=== PATIENT | male | born 1980 | race African-American/Black ===

== ENCOUNTER 2017-08-12 21:45 | Emergency (ER) | payer OTHER ==
[~2017-08-12] VITALS: Ht 188 cm; Wt 100.0 kg
[2017-08-13] MEDS ORDERED: BACITRACIN ZINC OINT UDPKT TOP ONE (01:00)
[2017-08-13] MEDS ORDERED: TETANUS AND DIPHTHERIA TOX/PF 0.5ML SYR (ADULT) IM ONE (01:00)
[2017-08-13] MEDS ORDERED: LIDOCAINE HCL 1% 20ML VIAL (Pyxis) INJ INFIL NR (01:15)
[2017-08-13 02:49] VITALS: BP 121/76
== END 2017-08-13 02:52 | disposition home or self-care (01) ==
LOC: ER 22:02
DX: S01.81XA Laceration without foreign body of other part of head, initial encounter (principal); F12.10 Cannabis abuse, uncomplicated; Y35.893A Legal intervention involving other specified means, suspect injured, initial encounter; Y93.89 Activity, other specified; Y92.488 Other paved roadways as the place of occurrence of the external cause
CPT/HCPCS: 12011; 99283; J3490; Z7610; 90714

== ENCOUNTER 2017-10-18 05:33 | Inpatient (IN) | payer SELFPAY ==
[~2017-10-18] VITALS: Ht 182.9 cm; Wt 91.2 kg
[2017-10-18] MEDS ORDERED: SODIUM CHLORIDE 0.9% 1,000 ML IV ONE (06:57)
[2017-10-18] MEDS ORDERED: ONDANSETRON HCL 4MG/2ML VIAL IV STA ×2 (06:57→11:03)
[2017-10-18] MEDS ORDERED: MORPHINE SULFATE 4 MG/ML CPJ (NOT FOR IM USE) IV STA ×2 (06:57→11:03)
[2017-10-18 07:19] LABS: BASOPHILS % 0.7 % (0.0-2.0); EOSINOPHILS % 0.5 % (0.0-5.0); HEMATOCRIT. 30.9 % (42.0-52.0); LYMPHOCYTES % 10.9 % (20.0-50.0); MEAN CORPUSCULAR HEMOGLOBIN 27.5 pg (28.0-32.0); MEAN CORPUSCULAR VOLUME 84.6 fL (80.0-94.0); MEAN PLATELET VOLUME 6.7 fl (7.4-10.4); MONOCYTES % 7.5 % (2.0-8.0); NEUTROPHILS % 80.4 % (40.0-76.0); PLATELET 368 x1000/uL (130-400); RED BLOOD CELL COUNT 3.65 mill/uL (4.7-6.1); RED CELL DISTRIBUTION WIDTH 19.2 % (11.6-14.6)
[2017-10-18 07:25] LABS: INR 1.1; PROTHROMBIN TIME 10.9 sec (9.4-11.6)
[2017-10-18 07:34] LABS: CARBON DIOXIDE 30 mEq/L (21-32); CHLORIDE 103 mEq/L (98-107)
[2017-10-18] MEDS ORDERED: IOHEXOL-300 100 ML BOTTLE ONE (10:02)
[2017-10-18 11:24] LABS: CLARITY URINE CLEAR (CLEAR); COLOR URINE YELLOW (YELLOW); KETONES URINE NEGATIVE (NEGATIVE); LEUKOCYTE ESTERASE URINE NEGATIVE (NEGATIVE); NITRITE URINE NEGATIVE (NEGATIVE); OCCULT BLOOD URINE NEGATIVE (NEGATIVE); PH URINE >=9.0 (4.5-8.0); PROTEIN URINE TRACE (NEGATIVE); SPECIFIC GRAVITY URINE 1.031 (1.005-1.030); UROBILINOGEN URINE 0.2 E.U./dL (0.2-1.0)
[2017-10-18] MEDS ORDERED: DOCUSATE SODIUM 100MG CAPSULE PO PRN (11:30)
[2017-10-18] MEDS ORDERED: MORPHINE SULFATE 2 MG/ML CPJ (NOT FOR IM USE) IV PRN (11:30)
[2017-10-18] MEDS ORDERED: ACETAMINOPHEN 325MG TABLET PO PRN (11:30)
[2017-10-18] MEDS ORDERED: ONDANSETRON HCL 4MG/2ML VIAL IV PRN (11:30)
[2017-10-18] MEDS ORDERED: ACETAMINOPHEN 650MG SUPP PR PRN (11:30)
[2017-10-18] MEDS ORDERED: IPRATROPIUM/ALBUTEROL 0.5-3(2.5)MG/3ML NEB INH PRN (11:30)
[2017-10-18] MEDS ORDERED: CLONIDINE 0.1MG TABLET PO PRN (11:30)
[2017-10-18] MEDS ORDERED: HYDROCODONE/ACETAMINOPHEN 10/325MG TABLET PO PRN (11:30)
[2017-10-18] MEDS ORDERED: MAGNESIUM/ALUMINUM HYDROXIDE/SIMETHICONE 30ML UDC PO PRN (11:30)
[2017-10-18] MEDS ORDERED: GUAIFENESIN 200MG/10ML SUGAR FREE UDC PO PRN (11:30)
[2017-10-18] MEDS ORDERED: NA PHOS,M-B/NA PHOS,DI-BA ENEMA 118ML PR PRN (11:30)
[2017-10-18] MEDS: SODIUM CHLORIDE 0.45% 1,000 ML IV SCH ×2 (16:20→21:07)
[2017-10-18] MEDS ORDERED: LORAZEPAM 0.5MG TABLET PO PRN (16:30)
[2017-10-18] MEDS ORDERED: ONDANSETRON 4MG ODT PO ONE (17:15)
[2017-10-18] MEDS ORDERED: MORPHINE SULFATE 10 MG/ML CPJ IM ONE (17:15)
[2017-10-18 18:47] VITALS: BP 132/95
[2017-10-18 18:50] VITALS: BP 132/97
[2017-10-18 20:00] VITALS: BP 132/97
[2017-10-18] MEDS: ENOXAPARIN 40MG/0.4ML SYR SUBCUT SCH ×2 (20:00→21:08)
[2017-10-18] MEDS: HYDROMORPHONE HCL/PF 2MG/ML CPJ IV PRN (20:39)
[2017-10-18] MEDS ORDERED: LEVOFLOXACIN 500MG PREMIX 100 ML IV SCH (21:00)
[2017-10-18] MEDS: METRONIDAZOLE 500 MG PREMIX 100 ML IV SCH (21:07)
[2017-10-19] VITALS: BP 119/81
[2017-10-19] MEDS: HYDROMORPHONE HCL/PF 2MG/ML CPJ IV PRN ×2 (01:00→05:47)
[2017-10-19 04:00] VITALS: BP 130/93
[2017-10-19] MEDS: METRONIDAZOLE 500 MG PREMIX 100 ML IV SCH (05:48)
[2017-10-19] MEDS: SODIUM CHLORIDE 0.45% 1,000 ML IV SCH (05:57)
[2017-10-19 07:28] LABS: BASOPHILS % 0.4 % (0.0-2.0); EOSINOPHILS % 3.2 % (0.0-5.0); HEMATOCRIT. 31.9 % (42.0-52.0); HEMOGLOBIN. 10.2 g/dL (14.0-18.0); LYMPHOCYTES % 26.2 % (20.0-50.0); MEAN CORPUSCULAR HEMOGLOBIN 27.4 pg (28.0-32.0); MEAN CORPUSCULAR VOLUME 85.2 fL (80.0-94.0); MEAN PLATELET VOLUME 7.6 fl (7.4-10.4); MONOCYTES % 7.7 % (2.0-8.0); NEUTROPHILS % 62.5 % (40.0-76.0); PLATELET 356 x1000/uL (130-400); RED BLOOD CELL COUNT 3.74 mill/uL (4.7-6.1); RED CELL DISTRIBUTION WIDTH 19.1 % (11.6-14.6)
[2017-10-19 07:56] LABS: CHLORIDE 99 mEq/L (98-107)
[2017-10-19 08:00] VITALS: BP 129/89
[2017-10-19 08:43] LABS: FOLIC ACID (FOLATE) SERUM 12.4 ng/mL (>5.38)
[2017-10-19 08:44] LABS: AMYLASE 344 IU/L (25-115); CARBON DIOXIDE 27 mEq/L (21-32); HDL CHOLESTEROL 42 mg/dL (40-59); LDL CHOLESTEROL 54 mg/dL (5-100); TOTAL IRON BINDING CAPACITY 195 ug/dL (250-450)
[2017-10-19] MEDS ORDERED: FERROUS SULFATE 325MG TABLET PO SCH (12:40)
[2017-10-19] MEDS ORDERED: ASCORBIC ACID 500 MG TABLET PO SCH (21:00)
== END 2017-10-19 10:13 | disposition left against medical advice (07) | DRG 282 ==
LOC: ER 05:33 → 8WST 11:14 → ENRESERV 17:37
PROVIDERS: ADMIT Internal Medicine; ATTEND Internal Medicine
DX: K85.90 Acute pancreatitis without necrosis or infection, unspecified (principal); R65.10 Systemic inflammatory response syndrome (SIRS) of non-infectious origin without acute organ dysfunction; E86.0 Dehydration; D64.9 Anemia, unspecified; F17.200 Nicotine dependence, unspecified, uncomplicated; Z53.21 Procedure and treatment not carried out due to patient leaving prior to being seen by health care provider
CPT/HCPCS: 36415; 74177; 80053; 80061; 81001; 82150; 82607; 82728; 82746; 83540; 83550; 83690; 85025; 85610; 96361; 96374; 96375; 96376; 99285; J1170; J1650; J1956; J2270; J2405; J3490; J7030; J7050; Q9967